=== PATIENT | male | born 1990 | race Two or more races ===

== ENCOUNTER 2020-12-28 16:26 | Emergency (ER) | payer SELFPAY ==
[~2020-12-28] VITALS: Ht 182.9 cm; Wt 83.9 kg
[2020-12-28 16:28] VITALS: BP 141/81
--- NOTE | 2020-12-28 17:48 | NUR ---
Patient given written and verbal discharge instructions. Patient verbalizes understanding of instructions. Patient is ambulatory with steady gait. Refuses offer of senior care placement. Patient given list of available shelters in surrounding area.
== END 2020-12-28 17:48 | disposition home or self-care (01) ==
LOC: EDSEX 16:26 → ER 16:34
DX: R42 Dizziness and giddiness (principal); E86.0 Dehydration